=== PATIENT | female | born 1965 | race Caucasian/White ===

== ENCOUNTER → 2021-01-31 | Outpatient (CLI) | payer MEDICARE, OTHER ==
[~2021-01-31] MED LIST: ALBUTEROL1.25 MG/3 INH; AMARYL4 MG PO; ANORO ELLIPTA1 EACH INH; BACTRIM DS TAB1 EACH PO; BACTROBAN OINT22 GM EXT; GLUCOPHAGE 500500 MG PO; IBUPROFEN600 MG PO; IBUPROFEN800 MG PO; KEFLEX500 MG PO; LIPITOR TAB 2020 MG PO; LOPRESSOR 25 MG25 MG PO; MEDROL4 MG PO; MUCINEX DM ER1 EAC1 PO; NEURONTIN 300300 MG PO; OMNICEF 300 MG300 MG PO; PLAVIX 75 MG TA75 MG PO; PREDNISONE 50 M50 MG PO; PREDNISONE20 MG PO; PROVENTIL HFA6.7 GM INH; SINGULAIR10 MG PO; THEO-DUR 300 M300 MG PO; TYLENOL 500 MG500 MG PO; VENTOLIN HFA 66.7 GM INH; VIBRAMYCIN100 MG PO; VITAMIN D31250 MCG PO; VITAMIN D32000 UNI1 PO; ZETIA 10 MG TAB10 MG PO; ZITHROMAX250 MG PO
== END ==
LOC: KOH-I 11:19
DX: M25.572 Pain in left ankle and joints of left foot (principal)
CPT/HCPCS: 73610; 73630

== ENCOUNTER → 2021-07-11 | Outpatient (CLI) | payer MEDICARE | LOC: KOH-I 14:23 | DX: M25.572 Pain in left ankle and joints of left foot (principal); M19.072 Primary osteoarthritis, left ankle and foot | CPT/HCPCS: 73610 ==